=== PATIENT | male | born 1960 | race Caucasian/White ===

== ENCOUNTER 2016-08-01 05:30 | Day surgery (SDC) | payer OTHER ==
[~2016-08-01] VITALS: Ht 175.3 cm; Wt 100.0 kg
[~2016-08-01 05:30] MED LIST: 00186-0370-20 IH; ADVAIR IH; COLACE 100100 MG/CAP PO; DIOVAN; DIOVAN 160MG160 MG PO; DUO-KAPS1 CAP PO; FLOMAX 0.40.4 MG/CAP PO; HCTZ; HCTZ 25MG TAB25 MG PO; LEVITRA10 MG PO; LOPRESSOR 225 MG/TAB PO; LOPRESSOR 550 MG/TAB PO; NASONEX SPRAY17 GM NS; NORCO 325 MG-51 TAB PO; PREDNISONE20 MG PO; PRIL40 PO; PROAIR HFA0.09 MG/AC IH; PYRIDIUM200 M1 PO; RT ADVAIR 228 DISKUS IH; RT SPIRIVA18 MCG IH; SINGULAIR; SINGULAIR 110 MG/TAB PO; SPIRIVA INH; TYLENOL W/COD1 UDTAB PO; VENTOLIN0.09 MG IH; ZANTAC 300300 MG PO; ZITHROMAX 250M250 MG; ZOFRAN 4MG T4 MG/TAB PO; ZYLOPRIM 100MG100 MG PO; ZYLOPRIM 300MG300 MG PO; blood pressure med
[2016-08-01] MEDS ORDERED: MACROBID 1100 MG/CAP PO (06:13)
[2016-08-01 06:29] VITALS: BP 146/85; PULSE 64; TEMP 97.9
[2016-08-01 08:25] VITALS: BP 132/95; PULSE 69; TEMP 98.6
[2016-08-01 08:40] VITALS: BP 132/88; PULSE 65
[2016-08-01 08:55] VITALS: BP 138/77; PULSE 60
[2016-08-01 09:54] VITALS: BP 136/86; PULSE 68; TEMP 98.6
== END 2016-08-01 09:10 | disposition home or self-care (01) ==
LOC: SDCO 05:30
DX: N13.2 Hydronephrosis with renal and ureteral calculous obstruction (principal); I12.9 Hypertensive chronic kidney disease with stage 1 through stage 4 chronic kidney disease, or unspecified chronic kidney disease; N18.9 Chronic kidney disease, unspecified; I51.9 Heart disease, unspecified; E78.5 Hyperlipidemia, unspecified; G47.30 Sleep apnea, unspecified; K21.9 Gastro-esophageal reflux disease without esophagitis
CPT/HCPCS: C1769; C2617; J0690; J1100; J2405; J2704; J3010; J7120

== ENCOUNTER 2017-01-01 11:30 | Day surgery (SDC) | payer OTHER ==
[~2017-01-01] VITALS: Ht 175.3 cm; Wt 98.7 kg
[~2017-01-01 11:30] MED LIST changes: +MACROBID 1100 MG/CAP PO
[2017-01-01 12:34] VITALS: BP 140/97; PULSE 64; TEMP 98.1
[2017-01-01] MEDS ORDERED: NASACORT OTC NS (12:49)
[2017-01-01 15:14] VITALS: BP 131/76; PULSE 62; TEMP 98.6
[2017-01-01 15:30] VITALS: BP 141/76; PULSE 70
[2017-01-01] MEDS ORDERED: NORCO 325 MG-51 TAB PO (16:02)
[2017-01-01] MEDS ORDERED: PYRIDIUM 100MG100 MG PO (16:03)
== END 2017-01-01 16:30 | disposition home or self-care (01) ==
LOC: SDCO 11:30
DX: N13.5 Crossing vessel and stricture of ureter without hydronephrosis (principal); J45.909 Unspecified asthma, uncomplicated; J44.9 Chronic obstructive pulmonary disease, unspecified; I51.9 Heart disease, unspecified; I13.10 Hypertensive heart and chronic kidney disease without heart failure, with stage 1 through stage 4 chronic kidney disease, or unspecified chronic kidney disease; N18.9 Chronic kidney disease, unspecified; E78.5 Hyperlipidemia, unspecified; I10 Essential (primary) hypertension; G47.30 Sleep apnea, unspecified; M72.2 Plantar fascial fibromatosis; Z87.891 Personal history of nicotine dependence; K57.92 Diverticulitis of intestine, part unspecified, without perforation or abscess without bleeding; K21.9 Gastro-esophageal reflux disease without esophagitis
CPT/HCPCS: C1769; C2617; J0690; J1100; J2405; J2704; J3010; J7120

== ENCOUNTER 2017-07-11 07:00 | Day surgery (SDC) | payer OTHER ==
[~2017-07-11] VITALS: Ht 175.3 cm; Wt 99.3 kg
[~2017-07-11 07:00] MED LIST changes: +NASACORT OTC NS; +PYRIDIUM 100MG100 MG PO
[2017-07-11] MEDS ORDERED: RT SPIRIVA18 MCG IH (07:21)
[2017-07-11] MEDS ORDERED: FLEXERIL 1010 MG/TAB PO (07:22)
[2017-07-11 07:42] VITALS: BP 146/92; PULSE 99; TEMP 97.9
[2017-07-11 10:05] VITALS: BP 119/77; PULSE 69; TEMP 99.1
[2017-07-11 10:20] VITALS: BP 136/82; PULSE 73
[2017-07-11 10:33] VITALS: BP 129/79; PULSE 69
== END 2017-07-11 10:45 | disposition home or self-care (01) ==
LOC: SDCO 07:00
DX: N13.5 Crossing vessel and stricture of ureter without hydronephrosis (principal); I12.9 Hypertensive chronic kidney disease with stage 1 through stage 4 chronic kidney disease, or unspecified chronic kidney disease; N18.9 Chronic kidney disease, unspecified; J44.9 Chronic obstructive pulmonary disease, unspecified; E78.5 Hyperlipidemia, unspecified; K21.9 Gastro-esophageal reflux disease without esophagitis; Z87.891 Personal history of nicotine dependence; Z88.1 Allergy status to other antibiotic agents; Z87.442 Personal history of urinary calculi; G47.30 Sleep apnea, unspecified; I51.9 Heart disease, unspecified; M72.2 Plantar fascial fibromatosis
CPT/HCPCS: C1769; C2617; J0690; J1100; J2405; J2704; J3010; J7120

== ENCOUNTER 2018-01-28 09:44 | Day surgery (SDC) | payer OTHER ==
[~2018-01-28] VITALS: Ht 175.3 cm; Wt 99.9 kg
[~2018-01-28 09:44] MED LIST changes: +FLEXERIL 1010 MG/TAB PO
[2018-01-28 10:13] VITALS: BP 140/82; PULSE 77; TEMP 97.9
[2018-01-28 12:10] VITALS: BP 138/76; PULSE 63; TEMP 98.5
[2018-01-28] MEDS ORDERED: PYRIDIUM 100MG100 MG PO (12:24)
[2018-01-28] MEDS ORDERED: NORCO 325 MG-51 TAB PO (12:24)
[2018-01-28 12:25] VITALS: BP 128/83; PULSE 77
== END 2018-01-28 12:45 | disposition home or self-care (01) ==
LOC: SDCO 09:44
DX: N13.5 Crossing vessel and stricture of ureter without hydronephrosis (principal); J45.909 Unspecified asthma, uncomplicated; J44.9 Chronic obstructive pulmonary disease, unspecified; E78.5 Hyperlipidemia, unspecified; K21.9 Gastro-esophageal reflux disease without esophagitis; G47.30 Sleep apnea, unspecified; I12.9 Hypertensive chronic kidney disease with stage 1 through stage 4 chronic kidney disease, or unspecified chronic kidney disease; N18.9 Chronic kidney disease, unspecified; M19.90 Unspecified osteoarthritis, unspecified site; Z88.8 Allergy status to other drugs, medicaments and biological substances; Z87.891 Personal history of nicotine dependence; Z82.49 Family history of ischemic heart disease and other diseases of the circulatory system
CPT/HCPCS: C1769; C2617; J0690; J1100; J1885; J2405; J2704; J2765; J3010; J7120

== ENCOUNTER 2018-06-17 10:37 | Day surgery (SDC) | payer OTHER ==
[~2018-06-17] VITALS: Ht 175.3 cm; Wt 104.6 kg
[2018-06-17 11:09] VITALS: BP 148/85; PULSE 66; TEMP 98.1
[2018-06-17] MEDS ORDERED: RT SPIRIVA18 MCG IH (11:20)
[2018-06-17 14:12] VITALS: BP 139/80; PULSE 85
[2018-06-17 14:30] VITALS: BP 145/72; PULSE 77
== END 2018-06-17 15:03 | disposition home or self-care (01) ==
LOC: SDCO 10:37
DX: N13.5 Crossing vessel and stricture of ureter without hydronephrosis (principal); Z79.899 Other long term (current) drug therapy; J44.9 Chronic obstructive pulmonary disease, unspecified; K21.9 Gastro-esophageal reflux disease without esophagitis; G47.33 Obstructive sleep apnea (adult) (pediatric); Z87.891 Personal history of nicotine dependence; I13.10 Hypertensive heart and chronic kidney disease without heart failure, with stage 1 through stage 4 chronic kidney disease, or unspecified chronic kidney disease; N18.9 Chronic kidney disease, unspecified; R20.2 Paresthesia of skin; E78.5 Hyperlipidemia, unspecified; K57.92 Diverticulitis of intestine, part unspecified, without perforation or abscess without bleeding
CPT/HCPCS: C1769; C2617; J0690; J1100; J1885; J2405; J2704; J3010; J7120

== ENCOUNTER → 2018-07-22 | Outpatient (CLI) | payer OTHER | LOC: COL.RAD 14:15 | DX: N13.5 Crossing vessel and stricture of ureter without hydronephrosis (principal) ==

== ENCOUNTER 2019-02-27 10:59 | Day surgery (SDC) | payer OTHER ==
[~2019-02-27] VITALS: Ht 175.3 cm; Wt 99.5 kg
[2019-02-27 12:20] VITALS: BP 150/92; PULSE 57; TEMP 98.3
[2019-02-27 13:21] VITALS: BP 168/79; PULSE 56; TEMP 97.7
--- NOTE | 2019-02-27 13:21 | NUR ---
The patient arrived back to [facility] from the operating room at this time. The patient's post operative vital signs were started at this time. The patient appears alert and oriented and denies any pain or nausea at this time. The patient requests to try some ice water and denies wanting anything to eat at this time. Call light is within reach. Will continue to monitor the patient.
[2019-02-27] MEDS ORDERED: PYRIDIUM 100MG100 MG PO (13:32)
[2019-02-27 13:36] VITALS: BP 169/73; PULSE 52
--- NOTE | 2019-02-27 13:36 | NUR ---
The patient has finished his water and appears to be resting comfortably on the cart at this time. The patient's is now at his bedside. Vital signs appear stable. Will continue to monitor the patient.
[2019-02-27 13:55] VITALS: BP 165/78; PULSE 52
--- NOTE | 2019-02-27 13:55 | NUR ---
Discharge instructions were reviewed with the patient and his at this time. They both verbalized understanding and have no questions for the nurse at this time. The patient's IV to his left hand was removed and a pressure dressing was applied to the site. The nurse instructed the patient to get dressed and notify the staff when he is ready to be escorted out.
--- NOTE | 2019-02-27 14:05 | NUR ---
The patient ambulated out independently using a steady gait and appeared to tolerate the activity well. The patient's arm band was cut off from his left arm at the patient's request. The patient's belongings and discharge papework were sent with him. The patient's is present to drive him home.
== END 2019-02-27 14:05 | disposition home or self-care (01) ==
LOC: SDCO 10:59
DX: N13.5 Crossing vessel and stricture of ureter without hydronephrosis (principal); J44.9 Chronic obstructive pulmonary disease, unspecified; E78.5 Hyperlipidemia, unspecified; I12.9 Hypertensive chronic kidney disease with stage 1 through stage 4 chronic kidney disease, or unspecified chronic kidney disease; N18.9 Chronic kidney disease, unspecified; K21.9 Gastro-esophageal reflux disease without esophagitis; M72.2 Plantar fascial fibromatosis; M19.90 Unspecified osteoarthritis, unspecified site; G47.33 Obstructive sleep apnea (adult) (pediatric); Z88.1 Allergy status to other antibiotic agents; Z87.891 Personal history of nicotine dependence; Z82.49 Family history of ischemic heart disease and other diseases of the circulatory system; Z88.8 Allergy status to other drugs, medicaments and biological substances
CPT/HCPCS: C1769; C2617; J0690; J7030

== ENCOUNTER 2019-08-18 11:04 | Day surgery (SDC) | payer OTHER ==
[~2019-08-18] VITALS: Ht 175.3 cm; Wt 102.0 kg
[2019-08-18 11:33] VITALS: BP 142/91; PULSE 64; TEMP 97.5
--- NOTE | 2019-08-18 11:42 | NUR ---
TO RM 7 AT 1110, CALL LIGHT IN REACH AT BEDSIDE
[2019-08-18 13:43] VITALS: BP 151/79; PULSE 687; TEMP 97.7
--- NOTE | 2019-08-18 13:43 | NUR ---
TO RM 7 PER CART FROM OR. ALERT ORIENTED X3, ASKING WHEN HE CAN GO HOME. RECEIVED COFFEE AND TOLERATING WELL. AT BEDSIDE. DR GUNDERSON TALKING WITH PATIENT AND HIS . DENIES PAIN OR DISCOMFORT DENIES N/V
[2019-08-18 14:00] VITALS: BP 148/89; PULSE 66
--- NOTE | 2019-08-18 14:00 | NUR ---
AMBULATED TO BATHROOM VOIDED AND TOLERATED WELL.
--- NOTE | 2019-08-18 14:10 | NUR ---
RECEIVED DISCHARGE INSTRUCTIONS AND VERBALIZED UNDERSTANDING F/U 08/31 AT 0730 DISCONTINUED IV AND INT- CATHETER INTACT.
--- NOTE | 2019-08-18 14:20 | NUR ---
DISCHARGED PER WC BY NURSING STAFF TO PRIVATE CAR IN CARE OF -JEREMIAH
[2019-08-18 14:27] VITALS: BP 158/86; PULSE 66
== END 2019-08-18 14:39 | disposition home or self-care (01) ==
LOC: SDCO 11:04
DX: N13.5 Crossing vessel and stricture of ureter without hydronephrosis (principal); Z88.8 Allergy status to other drugs, medicaments and biological substances; I13.10 Hypertensive heart and chronic kidney disease without heart failure, with stage 1 through stage 4 chronic kidney disease, or unspecified chronic kidney disease; N18.9 Chronic kidney disease, unspecified; G47.30 Sleep apnea, unspecified; J44.9 Chronic obstructive pulmonary disease, unspecified; Z87.891 Personal history of nicotine dependence; Z79.899 Other long term (current) drug therapy; K21.9 Gastro-esophageal reflux disease without esophagitis
CPT/HCPCS: C1769; C2617; J7120

== ENCOUNTER 2020-03-08 08:40 | Day surgery (SDC) | payer OTHER ==
[~2020-03-08] VITALS: Ht 175.3 cm; Wt 106.5 kg
[~2020-03-08 08:40] MED LIST changes: -ZANTAC 300300 MG PO; +ZANTAC PO
[2020-03-08 09:12] VITALS: BP 155/91; PULSE 71; TEMP 98.8
[2020-03-08] MEDS ORDERED: PRIL40 PO (09:36)
[2020-03-08 12:10] VITALS: BP 141/82; PULSE 63; TEMP 97.5
--- NOTE | 2020-03-08 12:10 | NUR ---
The patient arrived back to [facility] from the recovery room at this time. The patient appears alert and oriented and denies any pain or nausea at this time. The patient's post operative vital signs were started at this time. The patient agrees to try some coffee and a muffin. The patient's was brought back to be at his bedside. Will continue to monitor the patient.
[2020-03-08 12:25] VITALS: BP 150/92; PULSE 76
--- NOTE | 2020-03-08 12:25 | NUR ---
The patient appears be tolerating the food and drink well. Vital signs appear stable. remains at his bedside. The patient denies any pain or nausea at this time. The patient's remains at his bedside. Will continue to monitor the patient.
[2020-03-08 12:40] VITALS: BP 145/88; PULSE 62
--- NOTE | 2020-03-08 12:40 | NUR ---
The patient has returned to his room from using the bathroom and voided successfully without difficulty. The patient's IV to his left hand was removed and a pressure dressing was applied to the site. Discharge instructions were reviewed with the patient and his . They both verbalized understanding and have no questions for the nurse at this time. The patient is dressed and ready to be escorted out.
--- NOTE | 2020-03-08 12:50 | NUR ---
The patient was escorted out via wheelchair to a private vehicle by CHUCK Ibarra. The patient's belongings and discharge paperwork were sent with him. The patient's is present to drive him home.
== END 2020-03-08 12:50 | disposition home or self-care (01) ==
LOC: SDCO 08:40
DX: N13.1 Hydronephrosis with ureteral stricture, not elsewhere classified (principal); J44.9 Chronic obstructive pulmonary disease, unspecified; I12.9 Hypertensive chronic kidney disease with stage 1 through stage 4 chronic kidney disease, or unspecified chronic kidney disease; N18.9 Chronic kidney disease, unspecified; E78.5 Hyperlipidemia, unspecified; K21.9 Gastro-esophageal reflux disease without esophagitis; G47.33 Obstructive sleep apnea (adult) (pediatric); Z87.891 Personal history of nicotine dependence; Z88.8 Allergy status to other drugs, medicaments and biological substances; M19.90 Unspecified osteoarthritis, unspecified site
CPT/HCPCS: C1769; C2617; J0690; J1100; J1885; J2405; J2704; J3010; J7120

== ENCOUNTER → 2020-08-05 | Outpatient (CLI) | payer OTHER | LOC: COL.RAD 06:49 | DX: M51.16 Intervertebral disc disorders with radiculopathy, lumbar region (principal) ==

== ENCOUNTER → 2020-08-22 | Outpatient (CLI) | payer OTHER ==
[~2020-08-22] VITALS: Ht 175.3 cm; Wt 110.6 kg
[~2020-08-22] MED LIST changes: +NORCO 325 MG-7.1 TAB PO
[2020-08-22 06:44] VITALS: BP 153/102; PULSE 72
[2020-08-22 08:12] VITALS: BP 166/104; PULSE 73
== END ==
LOC: COL.RAD 06:21
DX: M54.16 Radiculopathy, lumbar region (principal)
CPT/HCPCS: J3301

== ENCOUNTER → 2020-11-09 | Outpatient (CLI) | payer OTHER ==
[~2020-11-09] VITALS: Ht 175.3 cm; Wt 111.4 kg
[~2020-11-09] MED LIST changes: +MINOXIDIL 2.5 PO; +SPIRIVA RE2.5 MCG/Ac IH
[2020-11-09 07:22] VITALS: BP 155/87; PULSE 79
[2020-11-09 08:39] VITALS: BP 150/84; PULSE 76
== END ==
LOC: COL.RAD 07:00
DX: M54.16 Radiculopathy, lumbar region (principal)
CPT/HCPCS: J3301

== ENCOUNTER 2020-12-07 08:22 | Day surgery (SDC) | payer OTHER ==
[~2020-12-07] VITALS: Ht 175.3 cm; Wt 107.9 kg
[2020-12-07 09:18] VITALS: BP 145/84; PULSE 64; TEMP 97.9
[2020-12-07] MEDS ORDERED: MINOXIDIL 2.5 PO (10:23)
[2020-12-07] MEDS ORDERED: PYRIDIUM 100MG100 MG PO (11:33)
[2020-12-07 12:00] VITALS: BP 152/91; PULSE 65
--- NOTE | 2020-12-07 12:00 | NUR ---
Patient returns to room 6 per cart from PACU accompanied by Preethi WOODS and is awake and alert. Temp 98.8 and room air sats 98%. Denies pain or nausea. IV to INT and patient assisted up to the bathroom. Gait steady. Voids and returns to room. Drinking water.
[2020-12-07 12:05] VITALS: TEMP 98.8
[2020-12-07 12:15] VITALS: BP 164/93; PULSE 59
--- NOTE | 2020-12-07 12:15 | NUR ---
Eating pudding and sipping on coffee. Continues to deny pain or nausea.
[2020-12-07 12:30] VITALS: BP 164/83; PULSE 64
--- NOTE | 2020-12-07 12:30 | NUR ---
Tolerated snack and coffee. Contacted spouse for ride home.
--- NOTE | 2020-12-07 12:38 | NUR ---
INT needle discontinued and site is free of redness. Patient dresses self.
--- NOTE | 2020-12-07 12:51 | NUR ---
Patient dismissal instructions given and voices understanding of home cares and follow up for stent change in 10 months. Provided office number for questions and concerns.
--- NOTE | 2020-12-07 12:54 | NUR ---
Patient dismissed to home driven by spouse and taken to the front door per wheelchair and assisted into vehicle by this RN with instructions in hand.
== END 2020-12-07 12:54 | disposition home or self-care (01) ==
LOC: SDCO 08:22
DX: N13.5 Crossing vessel and stricture of ureter without hydronephrosis (principal); K21.9 Gastro-esophageal reflux disease without esophagitis; J44.9 Chronic obstructive pulmonary disease, unspecified; I13.10 Hypertensive heart and chronic kidney disease without heart failure, with stage 1 through stage 4 chronic kidney disease, or unspecified chronic kidney disease; N18.9 Chronic kidney disease, unspecified; E78.5 Hyperlipidemia, unspecified; G47.33 Obstructive sleep apnea (adult) (pediatric); Z79.899 Other long term (current) drug therapy; Z87.891 Personal history of nicotine dependence; Z98.890 Other specified postprocedural states
CPT/HCPCS: C2617; J0690; J1100; J1885; J2405; J2704; J3010; J7120

== ENCOUNTER 2021-02-06 09:24 | Outpatient (RCR) | payer OTHER | END 2021-03-08 10:25 | disposition home or self-care (01) | LOC: WSPT 09:24 | DX: R60.0 Localized edema (principal) ==

== ENCOUNTER → 2021-02-07 | Outpatient (CLI) | payer OTHER ==
[~2021-02-07] VITALS: Ht 175.3 cm; Wt 108.0 kg
[2021-02-07 09:59] VITALS: BP 139/91; PULSE 67
[2021-02-07 11:30] VITALS: BP 162/91; PULSE 85
== END ==
LOC: COL.RAD 08:55
DX: M54.16 Radiculopathy, lumbar region (principal)
CPT/HCPCS: J3301

== ENCOUNTER → 2021-06-21 | Outpatient (CLI) | payer OTHER ==
[~2021-06-21] VITALS: Ht 175.3 cm; Wt 113.1 kg
[2021-06-21 07:03] VITALS: BP 179/100; PULSE 71; TEMP 97.7
[2021-06-21 07:32] VITALS: BP 177/102; PULSE 73
== END ==
LOC: COL.RAD 06:30
DX: M54.16 Radiculopathy, lumbar region (principal)
CPT/HCPCS: J3301

== ENCOUNTER 2021-10-11 05:33 | Day surgery (SDC) | payer OTHER ==
[~2021-10-11] VITALS: Ht 175.3 cm; Wt 110.6 kg
[2021-10-11] MEDS ORDERED: DIOVAN320 MG PO (06:02)
[2021-10-11 06:17] VITALS: BP 175/88; PULSE 69; TEMP 97.3
[2021-10-11 08:30] VITALS: BP 156/84; PULSE 67; TEMP 98.1
--- NOTE | 2021-10-11 08:30 | NUR ---
PT TO [facility] PER CART FORM PACU. RECEIVED REPORT FROM PACU, RN. VS OBTAINED. PT DENIES ANY PAIN AT THIS TIME. PT TOLERATING COFFEE. REORIENTED PT TO CALL LIGHT. CALL LIGHT WITHIN REACH. WILL CONTINUE TO MONITOR.
[2021-10-11 08:36] VITALS: TEMP 98.4
[2021-10-11 08:45] VITALS: BP 152/82; PULSE 65
--- NOTE | 2021-10-11 08:45 | NUR ---
PT CONTINUES TO REST COMFORTABLY. DENIES ANY NEEDS AT THIS TIME. WILL CONTINUE TO MONITOR PT.
[2021-10-11 09:00] VITALS: BP 165/89; PULSE 65
--- NOTE | 2021-10-11 09:00 | NUR ---
PT TOLERATING COFFEE. CONTINUES TO DENY ANY NEEDS. WILL CONTINUE TO MONITOR PT.
--- NOTE | 2021-10-11 09:15 | NUR ---
PT STATES HE IS READY FOR DISCHARGE.
--- NOTE | 2021-10-11 09:30 | NUR ---
IV DC'D. PT TOLERATED WELL.
--- NOTE | 2021-10-11 09:40 | NUR ---
DISCHARGE EDUCATION COMPLETED WITH PT. PT VERBALIZED UNDERSTANDING OF HOME AND FOLLOW UP CARE. ALL QUESTIONS ANSWERED. DISCHARGE PAPERWORK GIVEN TO PT. PT TO RESTROOM AND VOIDED WITHOUT DIFFICULTY.
--- NOTE | 2021-10-11 09:50 | NUR ---
PT OFF UNIT PER WHEELCHAIR. PT DISCHARGE TO HOME WITH PER PERSONAL VEHICLE.
== END 2021-10-11 09:50 | disposition home or self-care (01) ==
LOC: SDCO 05:33
DX: N13.5 Crossing vessel and stricture of ureter without hydronephrosis (principal); Z87.891 Personal history of nicotine dependence
CPT/HCPCS: C1769; C2617; J0690; J1100; J2405; J2704; J3010; J7120

== ENCOUNTER 2022-02-12 10:08 | Emergency (ER) | payer OTHER ==
[~2022-02-12] VITALS: Ht 175.3 cm; Wt 115.9 kg
[~2022-02-12 10:08] MED LIST changes: +DIOVAN320 MG PO
[2022-02-12 10:14] VITALS: TEMP 98.3
[2022-02-12 10:28] LABS: BASO % 0.6 % (0.0-2.0); EOS # 0.1 K/mm3 (0.0-0.7); EOS % 1.5 % (0.0-4.0); GRAN # 3.5 K/mm3 (1.4-6.5); GRAN % 66.9 % (42.2-75.2); HEMOGLOBIN 12.2 g/dl (13.5-18.0); LYMPH # 0.8 K/mm3 (1.2-3.4); LYMPH % 15.7 % (20.0-51.0); MEAN CELL VOLUME 95 fl (80.0-100.0); MEAN CORPUSCULAR HEMOGLOBIN 34 pg (27-31); MEAN CORPUSCULAR HGB CONC 35 g/dl (33.0-37.0); MEAN PLATELET VOLUME 7.9 fl (7.4-10.4); MONO # 0.8 K/mm3 (0.1-0.6); MONO % 14.5 % (1.7-9.3); PLATELET COUNT 173 K/mm3 (130-400); RED BLOOD COUNT 3.62 M/mm3 (4.20-5.60); REDCELL DISTRIBUTION WIDTH-CV 12.9 % (11.5-14.5)
[2022-02-12 10:36] LABS: HEMATOCRIT 34.5 % (42.0-52.0)
[2022-02-12 10:40] LABS: PROTHROMBIN TIME 11.6 SECONDS (9.7-12.8)
[2022-02-12 10:59] LABS: ALANINE AMINOTRANSFERASE 19 U/L (0-55); ALBUMIN 3.7 gm/dL (3.4-4.8); ALKALINE PHOSPHATASE 103 U/L (40-150); ANION GAP 9 mmol/L (7-16); AST,SGOT 28 U/L (5-34); BILIRUBIN,TOTAL 0.8 mg/dL (0.2-1.2); BLOOD UREA NITROGEN 10 mg/dL (8-26); CALCIUM 8.6 mg/dL (8.4-10.2); CARBON DIOXIDE 21 mmol/L (23-31); CHLORIDE 104 mmol/L (98-107); CREATININE, serum 1.18 mg/dL (0.72-1.25); GLUCOSE 101 mg/dL (70-99); POTASSIUM 4.5 mmol/L (3.5-4.5); SODIUM 134 mmol/L (136-145); TOTAL PROTEIN 6.6 gm/dL (6.2-8.1)
[2022-02-12 11:11] LABS: TROPONIN-I < 0.010 ng/mL (0.00-0.033)
[2022-02-12] MEDS ORDERED: ASPIRIN 81M81 MG/TA2 PO (11:18)
[2022-02-12] MEDS ORDERED: FLEXERIL 1010 MG/TAB PO (11:18)
[2022-02-12] MEDS ORDERED: HYDRODIURIL50 MG PO (11:19)
[2022-02-12] MEDS ORDERED: PEPCID AC20 MG PO (11:19)
[2022-02-12] MEDS ORDERED: NORCO 325 MG-7.1 TAB PO (11:20)
[2022-02-12] MEDS ORDERED: ALDACTONE 25MG25 M1 PO (14:01)
[2022-02-12] MEDS ORDERED: NORVASC 5MG5 MG/TAB PO (14:01)
[2022-02-12 14:41] VITALS: BP 188/108; PULSE 84
== END 2022-02-12 14:44 | disposition home or self-care (01) ==
LOC: COL.ER 10:08
PROVIDERS: Emergency Medicine
DX: J81.1 Chronic pulmonary edema (principal); E87.1 Hypo-osmolality and hyponatremia; R79.0 Abnormal level of blood mineral
CPT/HCPCS: J1940

== ENCOUNTER → 2023-11-19 | Outpatient (CLI) | payer MEDICARE, OTHER ==
[~2023-11-19] MED LIST changes: +ALDACTONE 25MG25 M1 PO; +ASPIRIN 81M81 MG/TA2 PO; +BUMEX 1MG TA1 MG/TA1 PO; +BYSTOLIC20 MG PO; +FLONASEALLERGY NS; +HYDRODIURIL50 MG PO; +MICARDIS80 MG PO; +MINOXIDIL 10 PO; +NORVASC 5MG5 MG/TAB PO; +PEPCID AC20 MG PO
== END ==
LOC: COL.RAD 07:50
DX: N26.1 Atrophy of kidney (terminal) (principal); K57.30 Diverticulosis of large intestine without perforation or abscess without bleeding; D72.819 Decreased white blood cell count, unspecified; D61.818 Other pancytopenia; Z96.89 Presence of other specified functional implants